=== PATIENT | female | born 1990 | race Caucasian/White ===

== ENCOUNTER 2016-02-13 11:48 | Emergency (ER) | payer OTHER ==
[2016-02-13 12:58] VITALS: BP 145/96; PULSE 87; TEMP 99; BMI 30.5
== END 2016-02-13 15:40 | disposition left against medical advice (07) ==
LOC: JER 11:48
DX: Z53.21 Procedure and treatment not carried out due to patient leaving prior to being seen by health care provider (principal)
CPT/HCPCS: 99281-25

== ENCOUNTER 2016-02-14 10:02 | Day surgery (SDC) | payer OTHER ==
[2016-02-14 10:08] VITALS: BMI 30.5
--- NOTE | 2016-02-14 11:06 | PDOC ---
History of Present Illness - General Chief Complaint: Abscess Boil Stated Complaint: CYST ON LOWER PELVIC Time Seen by Provider: 02/14/16 11:05 History Source: Patient Exam Limitations: No Limitations - History of Present Illness Initial Comments: 02/14/16 11:06 CHIEF COMPLAINT: "Cyst" HISTORY OF PRESENT ILLNESS: This is an otherwise healthy 25-year-old female with recurrent Bartholin's abscesses who presents complaining of painful, recurrent right-sided abscess for one week. She has been doing Sitz baths and taking Motrin without relief. She denies fevers/chills or any other systemic symptoms. Vital signs on arrival are notable for pulse of 98. REVIEW OF SYSTEMS: GENERAL/CONSTITUTIONAL: No fever or chills. No weakness. No weight change. CARDIOVASCULAR: No chest pain or palpitations. RESPIRATORY: No cough, wheezing, or shortness of breath. GASTROINTESTINAL: No nausea, vomiting, diarrhea or constipation. GENITOURINARY: Dysuria, vaginal pain/tenderness. SKIN: No rash or easy bruising. NEUROLOGIC: No headache, vertigo, loss of consciousness, or loss of sensation. HEMATOLOGIC/LYMPHATIC: No anemia, easy bleeding, or history of blood clots. ALLERGIC/IMMUNOLOGIC: No hives or skin allergy. No latex allergy. PHYSICAL EXAM: GENERAL: The patient is awake, alert, and fully oriented, in no acute distress. ENT: Pupils equal, round and reactive to light, extraocular movements intact, sclera anicteric, conjunctiva clear. Neck supple. LUNGS: Clear to auscultation bilaterally. Normal excursion. No respiratory distress or use of accessory muscles. CV: RRR, S1/S2, no MRG. Cap refill < 2 sec. ABDOMEN: Soft, non-distended, non-tender. EXTREMITIES: Normal range of motion, no edema. NEUROLOGICAL: Normal speech, normal gait. CN II-XII grossly intact. PSYCH: Normal mood, normal affect. SKIN: Warm, dry, normal turgor, no rashes or lesions noted. : 6cm x 3 cm tender, fluctuant right Bartholin's gland abscess; no active drainage. Past History - Past Medical History Allergies/Adverse Reactions: Allergies Allergy/AdvReac Type Severity Reaction Status Date / Time No Known Allergies Allergy Verified 02/14/16 10:08 Home Medications: Ambulatory Orders No Home Medications 0 dose .ROUTE UTDICT 02/20/13 Anemia: No Asthma: No Cancer: No Cardiac Disorders: No CVA: No COPD: No CHF: No Dementia: No Diabetes: No GI Disorders: No Disorders: No (BARTHOLIAN CYSTITIS I/D MANY TIMES) HTN: No Hypercholesterolemia: No Liver Disease: No Suicide Attempt (Hx): No Seizures: No Thyroid Disease: No - Surgical History Abdominal Surgery: No Appendectomy: No Cardiac Surgery: No Cholecystectomy: No Lung Surgery: No Neurologic Surgery: No Orthopedic Surgery: No - Psycho/Social/Smoking Cessation Hx Anxiety: No Suicidal Ideation: No Smoking Status: Yes Smoking History: Current every day smoker Years of Tobacco Use: 6 Have you smoked in the past 12 months: Yes Number of Cigarettes Smoked Daily: 10 Information on smoking cessation initiated: No Hx Alcohol Use: No Drug/Substance Use Hx: No Substance Use Type: None Hx Substance Use Treatment: No *Physical Exam - Vital Signs Last Vital Signs Temp Pulse Resp BP Pulse Ox 99.2 F 98 H 20 140/84 97 02/14/16 10:05 02/14/16 10:05 02/14/16 10:05 02/14/16 10:05 02/14/16 10:05 ED Treatment Course - LABORATORY CBC & Chemistry Diagram: 02/14/16 11:50 02/14/16 11:50 Medical Decision Making - Medical Decision Making 02/14/16 11:45 A/P: 25 year old female with recurrent Bartholin's abscesses. -Will give Percocet x 1 for pain (took Motrin prior to arrival) -Will send UA/culture and urine -Discussed with patient's utilization review rn, Dr. Newsome, who will take patient to OR today for marsupialization; will send pre-op labs and keep NPO -Patient will not require overnight stay per utilization review rn UA with 1+ leukesterase; may have concurrent UTI. *DC/Admit/Observation/Transfer Diagnosis at time of Disposition: Abscess of Bartholin's gland - Discharge Dispostion Condition at time of disposition: Stable Admit: Yes - Referrals Referrals: Johnna Jo [Primary Care Provider] -
[2016-02-14] MEDS ORDERED: ONDANSETRON *ODT* 4 MG TABLET SL ONE (11:29)
[2016-02-14] MEDS ORDERED: OXYCODONE/APAP 5/325MG COMBO TABLET PO ONE (11:29)
[2016-02-14] MEDS ORDERED: OXYCODONE/APAP 5/325MG COMBO TABLET ONE (11:32)
[2016-02-14 11:33] LABS: URINE APPEARANCE CLOUDY; URINE BILIRUBIN NEGATIVE (NEGATIVE); URINE COLOR DKYELLOW; URINE GLUCOSE (UA) NEGATIVE (NEGATIVE); URINE KETONE NEGATIVE (NEGATIVE); URINE NITRITE NEGATIVE (NEGATIVE); URINE UROBILINOGEN NEGATIVE E.U./dl (0.2-1.0)
[2016-02-14] MEDS ORDERED: ONDANSETRON *ODT* 4 MG TABLET ONE (11:33)
[2016-02-14 11:37] LABS: URINE BLOOD 1+ (NEGATIVE); URINE LEUK ESTERASE 1+ (NEGATIVE); URINE PROTEIN 1+ (NEGATIVE)
[2016-02-14 11:38] LABS: URINE BACTERIA RARE /hpf (NONE SEEN); URINE MUCUS MANY; URINE RBC 1 /hpf (0-3); URINE WBC 7 /hpf (3-5)
[2016-02-14 12:06] LABS: BASOPHIL 0.5 % (0-2.0); EOSINOPHIL 0.7 % (0-4.5); MCH 31.5 pg (25.7-33.7); MCHC 34.2 g/dl (32.0-36.0); MEAN CELL VOLUME 92.1 fl (80-96); MEAN PLT VOLUME 9.1 fl (7.5-11.1); PLATELET COUNT 268 K/MM3 (134-434); RDW 12.6 % (11.6-15.6); WHITE BLOOD COUNT 13.7 K/mm3 (4.0-10.0)
[2016-02-14 12:26] LABS: INR 1.02 (0.82-1.09); PROTHROMBIN TIME (PATIENT) 11.2 SEC (9.98-11.88)
[2016-02-14 12:31] LABS: CALCIUM 8.8 mg/dL (8.5-10.1); CREATININE 0.7 mg/dL (0.55-1.02)
[2016-02-14] MEDS ORDERED: MIDAZOLAM HCL 2 MG/2 ML SINGLE DOSE VIAL ONE (14:27)
[2016-02-14] MEDS ORDERED: PROPOFOL 20 ML ONE ×2 (14:27→14:56)
[2016-02-14] MEDS ORDERED: SCOPOLAMINE HYDROBROMIDE 1 PATCH PATCH.TD72 ONE (14:35)
[2016-02-14] MEDS ORDERED: ceFAZolin SODIUM 1 GM VIAL IVPB ONE (15:00)
[2016-02-14] MEDS ORDERED: ceFAZolin SODIUM 1 GM VIAL ONE (15:01)
[2016-02-14] MEDS ORDERED: ONDANSETRON 4 MG/2 ML VIAL ONE (15:04)
[2016-02-14] MEDS ORDERED: DEXAMETHASONE SOD PHOSPHATE 4 MG/1 ML VIAL ONE (15:04)
[2016-02-14] MEDS ORDERED: KETOROLAC TROMETHAMINE 30 MG/1 ML VIAL ONE (15:10)
[2016-02-14] MEDS ORDERED: IBUPROFEN 400 MG TABLET (FP) PO PRN (15:29)
[2016-02-14] MEDS ORDERED: ACETAMINOPHEN 325 MG TABLET (FP) PO PRN (15:29)
[2016-02-14] MEDS ORDERED: ONDANSETRON 4 MG/2 ML VIAL IVPUSH PRN (15:40)
[2016-02-14] MEDS ORDERED: oxyCODONE HCL 5 MG TABLET PO PRN (15:40)
[2016-02-14] MEDS ORDERED: LACTATED RINGERS SOLUTION 1,000 ML IV SCH (15:45)
[2016-02-14 16:20] VITALS: TEMP 97.8
[2016-02-14 18:04] VITALS: BP 129/63; PULSE 76
--- NOTE | 2016-02-15 09:59 | OP ---
DATE OF OPERATION: 02/14/2016 PREOPERATIVE DIAGNOSIS: Right Bartholin abscess. POSTOPERATIVE DIAGNOSIS: Right Bartholin abscess. SURGEON: Criselda Newsome MD ANESTHESIA: General. OPERATION: Marsupialization of Bartholin cyst. DESCRIPTION OF PROCEDURE: Once patient was prepped and draped under general anesthesia, examination under anesthesia revealed vagina clean, cervix closed, corpus normal, adnexa negative. There was a large abscess in the right Bartholin gland. At this time during the procedure, a sponge was applied in the vagina, and the abscess was opened with a knife and pus protruded. A culture was done, and with the help of the Cee and scissors, all the follicles of the gland were broken. At this time, bleeding was secured, and then marsupialization was done with 2-0 Vicryl. The floor of the cavity was closed to the edge of the incision. Estimated blood loss was 3 mL. Patient tolerated the procedure, was sent to the recovery room in good condition. Ria [id number]
== END 2016-02-14 18:04 | disposition home or self-care (01) ==
LOC: JER 10:02 → JASUSAT 14:59
PROVIDERS: ATTEND Obstetrics & Gynecology
PROC: 0UBLXZZ Excision of Vestibular Gland, External Approach (ICD-10-PCS; principal; 2016-02-14 14:30)
DX: N75.0 Cyst of Bartholin's gland (principal)
CPT/HCPCS: 36415; 80048; 81003; 81015; 84703; 85025; 85610; 86850; 86900; 86901; 87070; 87086; 87205; 94760; 99284-25